=== PATIENT | male | born 2000 | race Caucasian/White ===

== ENCOUNTER 2021-10-25 04:36 | Observation (INO) | payer BC ==
[~2021-10-25] VITALS: Ht 180.3 cm; Wt 68.0 kg
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
[2021-10-25 05:07] LABS: BASO % 0 % (0-3); EOS % 0 % (0-3); HEMOGLOBIN 16.2 g/dL (13.0-17.5); LYMPH % 38 % (24-48); MEAN CORPUSCULAR HEMOGLOBIN 32 pg (25-35); MEAN CORPUSCULAR HGB CONC 35 g/dL (31-37); MEAN CORPUSCULAR VOLUME 91 fL (79-100); MONO # 0.7 x10^3/uL (0.0-1.1); MONO % 9 % (0-9); NEUT % 52 % (31-73); PLATELET COUNT 224 x10^3/uL (140-400); RED BLOOD COUNT 5.05 x10^6/uL (4.30-5.70); RED CELL DISTRIBUTION WIDTH 12.6 % (11.5-14.5); WHITE BLOOD COUNT 7.8 x10^3/uL (4.0-11.0)
[2021-10-25 05:27] LABS: CALCIUM 8.2 mg/dL (8.5-10.1); GFR 94.3; POTASSIUM 3.2 mmol/L (3.5-5.1)
[2021-10-25 05:31] LABS: ACETAMIN < 2.0 mcg/ml (10-30)
[2021-10-25 05:33] LABS: ALBUMIN 4.6 g/dL (3.4-5.0); ALBUMIN/GLOBULIN RATIO 1.2 (1.0-1.7); MAGNESIUM 2.1 mg/dL (1.8-2.4); TOTAL BILIRUBIN 0.3 mg/dL (0.2-1.0); TOTAL PROTEIN 8.3 g/dL (6.4-8.2)
--- NOTE | 2021-10-25 05:34 | RAD ---
EXAM: CHEST ONE VIEW. HISTORY: Intoxication. COMPARISON: None. FINDINGS: A frontal view of the chest is obtained. There are no confluent infiltrates. There is no pneumothorax or pleural effusion. The heart is not en larged. IMPRESSION: 1. No confluent infiltrates. Electronically signed by: Tay Castro MD (10/25/2021 5:32 AM) [id number]
--- NOTE | 2021-10-25 05:38 | RAD ---
EXAM: CT HEAD WITHOUT CONTRAST. HISTORY: Altered mental status. TECHNIQUE: Computed tomography of the head was performed without intravenous contrast. One or more of the following individualized dose reduction techniques were utilized for this examination: 1. Automated exposure control. 2. Adjustment of the mA and/or kV according to patient size. 3. Use of iterative reconstruction technique. COMPARISON: None. FINDINGS: There is no intracranial hemorrhage. Chandler-white differentiation is preserved. The ventricle s are normal in size and position. A midline posterior fossa arachnoid cyst measures 5.1 x 3.4 cm tra nsaxially. There is also a bert cisterna magna. The visualized paranasal sinuses appear clear. The orbits are unremarkable. The temporal bones are un remarkable. The calvarium reveals no suspicious lesions. IMPRESSION: 1. No acute intracranial findings. 2. 5.1 x 3.4 cm midline posterior fossa arachnoid cyst, likely an incidental finding of no significan ce. Correlate for symptoms. Electronically signed by: Tay Castro MD (10/25/2021 5:35 AM) [id number]
[2021-10-25] MEDS ORDERED: IV NORMAL SALINE 1000ML BAG 1,000 ML IV ONE ×3 (06:00→09:15)
[2021-10-25 06:24] LABS: BARBITURATES NEG (NEG); BENZODIAZEPINES NEG (NEG); CANNABINOIDS POS (NEG); COCAINE NEG (NEG); METHADONE NEG (NEG); OPIATES NEG (NEG); PHENCYCLIDINE NEG (NEG)
[2021-10-25 06:26] LABS: BILIRUBIN,URINE NEGATIVE (NEG); CLARITY,URINE CLEAR; COLOR,URINE YELLOW; NITRITE,URINE NEGATIVE (NEG); PROTEIN,URINE NEGATIVE (NEG-TRACE); UROBILINOGEN,URINE 0.2 mg/dL (0.2 mg/dL)
[2021-10-25 06:28] LABS: AMPHETAMINE/METHAMPHETAMINE NEG (NEG)
[2021-10-25 06:43] LABS: BACTERIA,URINE 0 /HPF (0-FEW); HYALINE CASTS, URINE OCCASIONAL /HPF; RBC,URINE 0 /HPF (0-2); WBC,URINE 0 /HPF (0-4)
--- NOTE | 2021-10-25 08:54 | EKG ---
[facility] [address] [place] [address] Test Date: 2021-10-25 Test Time: 04:40:15 Pat Name: KEI PHAN Department: Room: Gender: M Rivet Sorter: : 2000 Requested By: ELIEZER ALEXIS Order Number: [id number] Reading MD: Salvatore Donaldson Measurements Intervals [place] Rate: 140 P: [place]: QRS: 87 QRSD: 92 T: 39 QT: 326 QTc: 502 Interpretive Statements SINUS TACHYCARDIA MILD NON SPECIFIC ST CHANGES Electronically Signed On 10-25-2021 14:44:04 MOTION PICTURES CARTOONIST by Salvatore Donaldson
--- NOTE | 2021-10-25 09:05 | EKG ---
[facility] [address] [place] [address] Test Date: 2021-10-25 Test Time: 09:00:10 Pat Name: WYATT PHAN Department: Room: Gender: M Process Helper: : 2000 Requested By: MORE RUDOLPH Order Number: [id number] Reading MD: Salvatore Donaldson Measurements Intervals [place] Rate: 124 P: 244 [place]: 108 QRS: 70 QRSD: 84 T: 48 QT: 354 QTc: 513 Interpretive Statements SINUS TACHYCARDIA LEFT ATRIAL ABNORMALITY Electronically Signed On 10-25-2021 14:41:56 RETOUCHER PHOTOENGRAVING by Salvatore Donaldson
[2021-10-25 12:00] VITALS: BP 140/93
--- NOTE | 2021-10-25 12:36 | HP ---
DATE OF SERVICE: 10/25/2021 ADMIT DATE: 10/25/2021 CHIEF COMPLAINT: Mental status change. HISTORY OF PRESENT ILLNESS: The patient is a pleasant 21-year-old healthy male who presented with mental status change via ambulance. His parents called the ambulance. He was brought to the ER. He is very confused, appears to have probably had drug intoxication, although drug screen so far is negative other than marijuana and alcohol. We suspect he may have gotten into some GHB or perhaps some bath salts or ecstasy, etc. The patient is being examined in room 1 in the ER where we plan to admit him. PAST MEDICAL HISTORY: Benign. ALLERGIES: None. FAMILY HISTORY: Diabetes. SOCIAL HISTORY: Does not drink, smoke or take drugs that we know of. MEDICATIONS: Reviewed, please refer to the MRAD. REVIEW OF SYSTEMS: Unable to obtain. He is too confused. PHYSICAL EXAMINATION: VITALS: Within normal limits and are stable. GENERAL: He is extremely confused. HEENT: Normal cephalic atraumatic, external auditory canals are patent. EYES: Extraocular muscles are intact, pupils are equally round and reactive to light and accommodation. MUSCULOSKELETAL: Well developed, well nourished, good range of motion. ENDOCRINE: No thyromegaly was palpated. LYMPHATICS: No cervical chain or axillary nodes were noted. HEMATOPOIETIC: No bruising. NECK: Supple, no JVD, no thyromegaly was noted. LUNGS: Clear to auscultation in all lung michael without rhonchi or wheezing. HEART: RRR, S1, S2 present. Peripheral pulses intact, no obvious murmurs were noted. ABDOMEN: Soft, nontender. Positive bowel sounds no organomegaly, normal bowel sounds. EXTREMITIES: Without any cyanosis, clubbing, or edema. Pedal pulses intact, Homans sign is negative. NEUROLOGIC: He is extremely confused. PSYCHIATRIC: He is extremely confused. SKIN: No ulcerations or rashes, good skin turgor, no jaundice. VASCULAR: Good capillary refill, neurovascular bundle appears to be intact. LABORATORY DATA: Drug screen is negative other than marijuana and alcohol. White count 7.8. Potassium is low at 3.2. Lactic acid is 11.1. ASSESSMENT AND PLAN: Mental status change, suspect drug intoxication, perhaps GHB or ecstasy or bath salts, etc. with incidental finding of hyponatremia and lactic acidosis. We are going to do cardiac monitoring. We will replace his potassium. We rechecked his lactic acid, it is down to 2.7. IV fluids, deep venous thrombosis prophylaxis, psychiatric assessment team evaluation once he is more stable. Seizure precautions. SHERWIN/[place]EN[place]/PARMINDER DR: Clara TID: [id number]
[2021-10-25 15:00] VITALS: BP 149/87
[2021-10-25 19:30] VITALS: BP 120/83
[2021-10-26] MEDS: MULTIVIT INFUSN,ADULT 4,VIT K 10 ML, THIAMINE INJ 100 MG, FOLIC ACID INJ 1 MG in IV NOR... IV SCH ×2 (00:07→09:33)
[2021-10-26 07:00] VITALS: BP 130/82
--- NOTE | 2021-10-26 07:18 | NUR ---
Pt removed IV during the noc after banana bag started while pt's father currently in the room. Pt with paranoia noted. Did not attempt a new peripheral line at this time. Will continue to monitor. Pt did get a dose of ativan before IV was removed.
[2021-10-26] MEDS ORDERED: MULTIVIT INFUSN,ADULT 4,VIT K 10 ML, THIAMINE INJ 100 MG, FOLIC ACID INJ 1 MG in IV NOR... IV SCH (09:00)
[2021-10-26 11:00] VITALS: BP 120/55
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
--- NOTE | 2021-10-26 14:46 | NUR ---
Discharge Note: WYATT PHAN Discharge instructions and discharge home medications reviewed with Patient and a copy given. All questions have been answered and understanding verbalized. The following instructions and handouts were given: Worsening symptoms, follow up information, and drug cessation information. Discontinued lines and drains: IV discontinued from L forearm, telemetry removed and skin intact. Patient discharged to home accompanied by mom via private vehicle.
== END 2021-10-26 14:50 | disposition home or self-care (01) ==
LOC: ER 04:36 → ED HOLD 08:14 → 5 NORTH 12:51
PROVIDERS: ADMIT Internal Medicine; ATTEND Internal Medicine
DX: G92.9 Unspecified toxic encephalopathy (principal); Z20.822 Contact with and (suspected) exposure to COVID-19; E87.1 Hypo-osmolality and hyponatremia; E87.2 Acidosis; F10.129 Alcohol abuse with intoxication, unspecified; F12.90 Cannabis use, unspecified, uncomplicated; G93.0 Cerebral cysts; R41.82 Altered mental status, unspecified; R56.9 Unspecified convulsions; Z87.891 Personal history of nicotine dependence; Z79.899 Other long term (current) drug therapy; Z98.890 Other specified postprocedural states
CPT/HCPCS: 36415; 70450; 71045; 80053; 80307; 80329; 81001; 82550; 83605; 83735; 84484; 85025; 87040; 87426; 93005; 96361; 96365; 96366; 96375; 96376; 99285; G0378; G0480; J2060; J3411; J3490; J7030; U0003; U0005; G0379